=== PATIENT | female | born 1980 | race Caucasian/White ===

== ENCOUNTER → 2020-08-30 08:05 | Outpatient (CLI) | payer OTHER | END | disposition home or self-care (01) | LOC: LAB 07:52 → EDBD 08:05 → LAB 08:05 | PROVIDERS: ATTEND Obstetrics & Gynecology | DX: N95.1 Menopausal and female climacteric states (principal); E28.39 Other primary ovarian failure; E04.1 Nontoxic single thyroid nodule; E55.9 Vitamin D deficiency, unspecified; E78.00 Pure hypercholesterolemia, unspecified ==

== ENCOUNTER 2020-08-30 09:03 | Outpatient (CLI) | payer OTHER | END 2020-08-30 11:13 | disposition home or self-care (01) | LOC: MAMO-SONO 09:03 → EDBD 09:03 → MAMO-SONO 09:15 → SONOGRAMA 09:15 → MAMO-SONO 11:13 | PROVIDERS: ATTEND Obstetrics & Gynecology | DX: N85.2 Hypertrophy of uterus (principal); Z12.31 Encounter for screening mammogram for malignant neoplasm of breast; N60.11 Diffuse cystic mastopathy of right breast; N60.12 Diffuse cystic mastopathy of left breast ==